=== PATIENT | male | born 1990 | race Two or more races ===

== ENCOUNTER 2023-06-11 01:09 | Emergency (ER) | payer MEDICAID, OTHER ==
[~2023-06-11] VITALS: Ht 185.4 cm; Wt 129.0 kg
[2023-06-11 01:54] LABS: Basophils # (auto) 0.1 10 ^3/uL (0-0.2); Basophils % (auto) 0.9 % (0.0-2.0); Eosinophils # (auto) 0 10 ^3/uL (0-0.8); Eosinophils % (auto) 0.4 % (0.0-7.0); Hematocrit 45.4 % (41.0-53.0); Hemoglobin 15.4 g/dL (13.5-17.5); Lymphocytes # (auto) 1.8 10 ^3/uL (0.4-5.4); Lymphocytes % (auto) 24.3 % (10.0-50.0); Mean Corpuscular Hemoglobin 30.1 pg (28.0-32.0); Mean Corpuscular Hgb Conc. 33.8 g/dL (32.0-36.0); Monocytes # (auto) 0.6 10 ^3/uL (0-1.3); Monocytes % (auto) 8.8 % (0.0-12.0); Neutrophils # (auto) 4.8 10 ^3/uL (1.6-8.6); Neutrophils % (auto) 65.6 % (37.0-80.0); Nucleated Red Blood Cells % 0.1 %; Red Cell Distribution Width 14.2 % (11.8-14.3); White Blood Cell 7.3 10^3/uL (4.4-10.8)
[2023-06-11 02:08] LABS: INR 1.24 (0.9-1.15); Partial Thromboplastin Time 25.9 SEC (24.5-34.5); Prothrombin Time 12.8 sec (9.3-11.8)
[2023-06-11 02:10] LABS: Alanine Aminotransferase 49 U/L (7-40); Alkaline Phosphatase 51 U/L (46-116); Anion Gap 7.8 (5-15); Aspartate Aminotransferase 40 U/L (13-40); BUN/Creatinine Ratio 13.9 (10.0-20.0); Blood Urea Nitrogen 24 mg/dL (9-23); Carbon Dioxide 21.2 mmol/L (20-30); Chloride 109 mmol/L (98-107); Glucose 125 mg/dL (74-106); Magnesium 2.1 mg/dL (1.6-2.6); Sodium 138 mmol/L (136-145)
[2023-06-11 02:11] LABS: Total Protein 6.6 g/dL (5.7-8.2)
[2023-06-11 03:05] VITALS: PULSE 94; RESP 23; O2SAT 98
[2023-06-11] MEDS ORDERED: FUROSEMIDE 40 MG/4 ML VIAL IV ONE (03:15)
[2023-06-11 03:23] LABS: Urine Bacteria NONE SEEN /hpf (None Seen); Urine Blood Negative /uL (Negative); Urine Clarity Clear (Clear); Urine Color Colorless (Yellow); Urine Hyaline Cast MOD /lpf (0 - 2); Urine Mucus FEW (None Seen); Urine Protein, UAD 1+ (Negative); Urine Urobilinogen Normal (Negative); Urine WBC <1 /hpf (0 - 3)
[2023-06-11 04:08] LABS: Opiate Scree,Urine Neg (NEGATIVE)
[2023-06-11 04:10] LABS: Amphetamine Screen, Urine Neg (NEGATIVE); Barbiturate Scree,Urine Neg (NEGATIVE); Benzodiazephine Screen, Urine Neg (NEGATIVE); Cannabinoid Screen, Urine Neg (NEGATIVE); Cocaine Screen, Urine Neg (NEGATIVE); Phencyclidine Screen, Urine Neg (NEGATIVE)
[2023-06-11] MEDS ORDERED: ENOXAPARIN SOD 150 MG/1 ML SYRINGE SC ONE (04:45)
[2023-06-11 06:05] LABS: COVID19 ANTIGEN SOFIA FIA NEGATIVE (NEGATIVE)
[2023-06-11 08:01] VITALS: BP 115/71; PULSE 89; RESP 20; TEMP 97.8; O2SAT 97
== END 2023-06-11 08:09 | disposition short-term general hospital (02) ==
LOC: ER 01:09
DX: I50.9 Heart failure, unspecified (principal); R07.89 Other chest pain; R00.2 Palpitations; R77.8 Other specified abnormalities of plasma proteins; R94.8 Abnormal results of function studies of other organs and systems; R09.02 Hypoxemia; R79.89 Other specified abnormal findings of blood chemistry; Z98.890 Other specified postprocedural states; Z88.6 Allergy status to analgesic agent; Z79.899 Other long term (current) drug therapy
CPT/HCPCS: 36415; 36600; 71045; 80053; 80307; 81001; 82805; 83605; 83735; 83880; 84484; 85025; 85379; 85610; 85730; 87426; 93005; 96372; 96374; 99291; J1650; J1940

== ENCOUNTER 2023-07-09 23:51 | Inpatient (IN) | payer MEDICAID, OTHER ==
[~2023-07-09] VITALS: Ht 185.4 cm; Wt 119.8 kg
[2023-07-10 00:10] VITALS: RESP 21; O2SAT 94
[2023-07-10 00:22] LABS: Basophils # (auto) 0.1 10 ^3/uL (0-0.2); Basophils % (auto) 1.1 % (0.0-2.0); Eosinophils # (auto) 0.1 10 ^3/uL (0-0.8); Eosinophils % (auto) 1.1 % (0.0-7.0); Hematocrit 46.6 % (41.0-53.0); Hemoglobin 15.6 g/dL (13.5-17.5); Lymphocytes % (auto) 27.6 % (10.0-50.0); Mean Corpuscular Hgb Conc. 33.5 g/dL (32.0-36.0); Mean Corpuscular Volume 89.4 fL (80.0-100.0); Monocytes % (auto) 13.7 % (0.0-12.0); Neutrophils # (auto) 4.1 10 ^3/uL (1.6-8.6); Neutrophils % (auto) 56.5 % (37.0-80.0); Nucleated Red Blood Cells % 0.1 %; Red Blood Cells 5.22 10^6/uL (4.5-5.90); Red Cell Distribution Width 14.1 % (11.8-14.3); White Blood Cell 7.3 10^3/uL (4.4-10.8)
[2023-07-10 00:31] LABS: Alanine Aminotransferase 33 U/L (7-40); Albumin 4.1 g/dL (3.2-4.8); Alkaline Phosphatase 60 U/L (46-116); Anion Gap 9 (5-15); Aspartate Aminotransferase 26 U/L (13-40); BUN/Creatinine Ratio 7.5 (10.0-20.0); Bilirubin, Total 0.4 mg/dL (0.2-1.0); Blood Urea Nitrogen 13 mg/dL (9-23); Calcium 8.8 mg/dL (8.7-10.4); Carbon Dioxide 25 mmol/L (20-30); Chloride 108 mmol/L (98-107); Glucose 127 mg/dL (74-106); Potassium 3.4 mmol/L (3.5-5.1); Sodium 142 mmol/L (136-145); Total Protein 7.2 g/dL (5.7-8.2)
[2023-07-10 00:36] LABS: INR 1.14 (0.9-1.15); Partial Thromboplastin Time 27.6 SEC (24.5-34.5); Prothrombin Time 11.9 sec (9.3-11.8)
[2023-07-10 01:23] LABS: Magnesium 2.1 mg/dL (1.6-2.6)
[2023-07-10] MEDS ORDERED: ASPirin 325 MG TAB PO ONE (01:45)
[2023-07-10] MEDS ORDERED: NITROGLYCERIN 0.4 MG SL TAB SL ONE ×3 (01:45→02:23)
[2023-07-10] MEDS ORDERED: HEPARIN SODIUM (PORCINE) 5000 UNITS/ML 1ML VIAL IV ONE (03:30)
[2023-07-10 03:31] LABS: COVID19 ANTIGEN SOFIA FIA NEGATIVE (NEGATIVE)
[2023-07-10] MEDS ORDERED: HEPARIN SODIUM (PORCINE) 5000 UNITS/ML 1ML VIAL ONE (03:31)
[2023-07-10] MEDS ORDERED: IOHEXOL 350 MG/ML 100ML IJ ONE (03:59)
[2023-07-10] MEDS ORDERED: HEPARIN DRIP/D5W 100UNITS/ML 250 ML IV SCH ×2 (04:30→05:00)
[2023-07-10 04:52] LABS: Urine Bacteria FEW /hpf (None Seen); Urine Blood Negative /uL (Negative); Urine Clarity Clear (Clear); Urine Color Yellow (Yellow); Urine Hyaline Cast FEW /lpf (0 - 2); Urine Mucus FEW (None Seen); Urine Protein, UAD 1+ (Negative); Urine Specific Gravity 1.019 (1.001-1.035); Urine Urobilinogen Normal (Negative); Urine WBC 2 /hpf (0 - 3)
[2023-07-10] MEDS ORDERED: NITROGLYCERIN 0.4 MG SL TAB SL PRN (05:15)
[2023-07-10] MEDS ORDERED: ONDANSETRON HCL 4 MG/2 ML VIAL IV PRN (05:15)
[2023-07-10 05:36] LABS: Amphetamine Screen, Urine Neg (NEGATIVE); Barbiturate Scree,Urine Neg (NEGATIVE); Benzodiazephine Screen, Urine Neg (NEGATIVE); Cocaine Screen, Urine Neg (NEGATIVE); Opiate Scree,Urine Neg (NEGATIVE)
[2023-07-10 05:37] LABS: Cannabinoid Screen, Urine Neg (NEGATIVE); Phencyclidine Screen, Urine Neg (NEGATIVE)
[2023-07-10 07:46] VITALS: RESP 22; O2SAT 93
[2023-07-10] MEDS ORDERED: POTASSIUM CHL 20 Meq TABLET PO ONE (08:00)
[2023-07-10 08:12] LABS: Triglycerides 57 mg/dL (< 150)
[2023-07-10 08:13] LABS: LDL Cholesterol 50 mg/dL (< 100)
[2023-07-10 08:14] LABS: Cholesterol 100 mg/dL (< 200); HDL Cholesterol 40 mg/dL (40-59)
[2023-07-10] MEDS ORDERED: EMPA1TAB3 PO (10:32)
[2023-07-10] MEDS ORDERED: ALL100T PO (10:32)
[2023-07-10] MEDS ORDERED: COLC0.6T56 GT (10:32)
[2023-07-10] MEDS ORDERED: SACU1TAB PO (10:32)
[2023-07-10] MEDS ORDERED: ISOS1TAB28 PO (10:32)
[2023-07-10] MEDS ORDERED: BUMEX2MG (10:32)
[2023-07-10] MEDS ORDERED: METO25TA93 PO (10:32)
[2023-07-10] MEDS ORDERED: METOPROLOL TARTRATE 25 MG TAB PO ONE (10:45)
[2023-07-10] MEDS ORDERED: ASPirin 81 mg TAB PO ONE (10:45)
[2023-07-10] MEDS ORDERED: FUROSEMIDE 20 MG/2 ML VIAL IV ONE (10:45)
[2023-07-10] MEDS ORDERED: ENOXAPARIN SOD 120 MG/0.8 ML SYRINGE SC ONE (11:00)
[2023-07-10 12:14] VITALS: RESP 16
[2023-07-10 13:00] VITALS: BP 114/73; PULSE 96; RESP 18; TEMP 97.4; O2SAT 99
[2023-07-10] MEDS ORDERED: ISOSORBIDE DINITRATE 10 MG TAB PO SCH (18:00)
[2023-07-10] MEDS ORDERED: FUROSEMIDE 20 MG/2 ML VIAL IV SCH (18:00)
[2023-07-10] MEDS ORDERED: SACUBITRIL-VALSARTAN 24mg/26mg TAB PO SCH (22:00)
[2023-07-10] MEDS ORDERED: METOPROLOL TARTRATE 25 MG TAB PO SCH (22:00)
[2023-07-10] MEDS ORDERED: ENOXAPARIN SOD 120 MG/0.8 ML SYRINGE SC SCH (22:00)
[2023-07-11] MEDS ORDERED: ASPirin 81 mg TAB PO SCH (10:00)
[2023-07-11] MEDS ORDERED: DAPAGLIFLOZIN 5 MG TAB PO SCH (10:00)
[2023-07-11] MEDS ORDERED: METOPROLOL SUCCINATE XL 50 MG TAB PO SCH (10:00)
== END 2023-07-10 15:20 | disposition left against medical advice (07) | DRG 280 ==
LOC: ER 23:54 → TELE 07-10 05:06 → TELE-WESTW 07-10 11:52
PROVIDERS: ADMIT Nurse Practitioner; ATTEND Nurse Practitioner Acute Care
DX: I21.4 Non-ST elevation (NSTEMI) myocardial infarction (principal); I50.43 Acute on chronic combined systolic (congestive) and diastolic (congestive) heart failure; N17.0 Acute kidney failure with tubular necrosis; I13.0 Hypertensive heart and chronic kidney disease with heart failure and stage 1 through stage 4 chronic kidney disease, or unspecified chronic kidney disease; I42.8 Other cardiomyopathies; E66.9 Obesity, unspecified; M10.9 Gout, unspecified; Z53.29 Procedure and treatment not carried out because of patient's decision for other reasons; Z20.822 Contact with and (suspected) exposure to COVID-19; N18.9 Chronic kidney disease, unspecified; Z88.5 Allergy status to narcotic agent; Z76.82 Awaiting organ transplant status; Z79.899 Other long term (current) drug therapy; Z68.34 Body mass index [BMI] 34.0-34.9, adult
CPT/HCPCS: 36415; 71275; 80053; 80061; 80307; 81001; 83036; 83735; 83880; 84439; 84443; 84484; 85025; 85610; 85730; 87081; 87426; 93005; 93306; 96365; 96366; 99291; G0378